=== PATIENT | male | born 1960 | race Caucasian/White ===

== ENCOUNTER 2018-12-08 07:46 | Day surgery (SDC) | payer BC ==
[~2018-12-08] VITALS: Ht 185.4 cm; Wt 110.6 kg
[2018-12-08 08:26] VITALS: BP 134/87; PULSE 82; TEMP 98.2
[2018-12-08] MEDS ORDERED: LEXAPRO 10MG10 MG PO (08:37)
[2018-12-08] MEDS ORDERED: PROTONIX 40MG T40 MG PO (08:37)
[2018-12-08] MEDS ORDERED: LOSARTAN/HCT TAB 100 PO (08:38)
[2018-12-08] MEDS ORDERED: NORVASC 5MG5 MG/TAB PO (08:38)
[2018-12-08] MEDS ORDERED: TIROSINT137 MC1 PO (08:39)
[2018-12-08] MEDS ORDERED: ADIPEX-P37.5 MG PO (08:40)
[2018-12-08] MEDS ORDERED: HYZAAR 12.5 MG-1 TAB PO (08:41)
--- NOTE | 2018-12-08 08:45 | NUR ---
RECEIVED TAP WATER ENEMAS TILL CLEAR. PATIENT ABLE TO WALK TO BATHROOM AND HAVE 2 SMALL BOWEL MOVEMENTS AND THEN CLEAR.
[2018-12-08 09:20] VITALS: BP 116/84; PULSE 80; TEMP 98.2
--- NOTE | 2018-12-08 09:20 | NUR ---
TO BAY4 PER CART FROM ENDSCOPY FOLLOWING A SIGMOIDOSCOPY. AMBULATED TO CART IN ROOM WITH ASSIST. AT BEDSIDE.
[2018-12-08 09:35] VITALS: BP 126/86; PULSE 84
--- NOTE | 2018-12-08 09:35 | NUR ---
RECEIVED DIET PEPSI AND MUFFIN. SITTING UP AND TALKING TO .
[2018-12-08 09:50] VITALS: BP 142/83; PULSE 80
--- NOTE | 2018-12-08 09:50 | NUR ---
DR NAM INTO TALK WITH PATIENT AND HIS .
--- NOTE | 2018-12-08 10:05 | NUR ---
RECEIVED DISCHARGE INSTRUCTIONS AND PROCEDURE REPORT. DISCONTINUED IV AND INT PATIENT GETTING DRESSED.
--- NOTE | 2018-12-08 10:15 | NUR ---
DISCHARGED PER WC BY NURSING STAFF TO PRIVATE CAR IN CARE OF - DANYELL.
== END 2018-12-08 10:26 | disposition home or self-care (01) ==
LOC: SDCO 07:46
DX: C20 Malignant neoplasm of rectum (principal); K62.1 Rectal polyp; K62.6 Ulcer of anus and rectum; K21.9 Gastro-esophageal reflux disease without esophagitis; E07.9 Disorder of thyroid, unspecified; I10 Essential (primary) hypertension; Z85.038 Personal history of other malignant neoplasm of large intestine
CPT/HCPCS: OP; J2250; J3010; J7030

== ENCOUNTER → 2020-05-06 | Outpatient (CLI) | payer BC ==
[~2020-05-06] MED LIST: ADIPEX-P37.5 MG PO; HYZAAR 12.5 MG-1 TAB PO; LEXAPRO 10MG10 MG PO; LOSARTAN/HCT TAB 100 PO; NORVASC 5MG5 MG/TAB PO; PROTONIX 40MG T40 MG PO; TIROSINT137 MC1 PO
== END ==
LOC: EDBD 10:56 → COL.LAB 10:56
DX: Z20.822 Contact with and (suspected) exposure to COVID-19 (principal)